=== PATIENT | female | born 1960 | race Caucasian/White ===

== ENCOUNTER 2017-06-09 12:36 | Emergency (ER) | payer BC, MEDICARE ==
[2017-06-09 12:58] VITALS: BP 161/89; PULSE 90; RESP 16; TEMP 97.2; O2SAT 98
[2017-06-09] MEDS ORDERED: AMOXICILLIN 250 MG CAP PO ONE (13:56)
[2017-06-09] MEDS ORDERED: AMOXICILLIN(FRIDGE) 125/5 ML BOTTLE ONE (13:57)
== END 2017-06-09 14:08 | disposition home or self-care (01) | DRG 159 ==
LOC: ED 12:36
DX: K02.9 Dental caries, unspecified (principal)
CPT/HCPCS: 99282